=== PATIENT | male | born 1990 | race Caucasian/White ===

== ENCOUNTER 2022-11-30 14:09 | Emergency (ER) | payer OTHER ==
[~2022-11-30 14:09] MED LIST: Iopamidol 370 76% 100 ML VIAL ONE
[2022-11-30 14:54] LABS: ALT (SGPT) 24 U/L (8-55); AST (SGOT) 23 U/L (5-34); Alcohol Less than 10 mg/dL (Less than 10); Alkaline Phosphatase 107 U/L (40-110); Anion Gap 15 mmol/L (10-20); BUN (Urea Nitrogen) 12 mg/dL (8.9-20.6); Bilirubin, Total 0.9 mg/dL (0.2-1.2); Calc. Creatinine Clearance 0 mL/min (70-130); Calcium 9.7 mg/dL (7.8-10.44); Carbon Dioxide 26 mmol/L (22-29); Chloride 102 mmol/L (98-107); Estimated GFR 119; Globulin 3.3 g/dL (2.4-3.5); Glucose 109 mg/dL (70-105); Lipase 22 U/L (8-78); Potassium 3.5 mmol/L (3.5-5.1); Protein, Total 8.3 g/dL (6.0-8.3); Sodium 139 mmol/L (136-145)
[2022-11-30 14:58] LABS: #Basophils 0.1 thou/uL (0.0-0.2); #Lymphocytes 4.2 thou/uL (1.20-3.40); #Monocytes 0.8 thou/uL (0.11-0.59); #Neutrophils 6.5 thou/uL (1.40-6.50); %Basophils 0.9 % (0.0-1.0); %Eosinophils 0.2 % (0.0-10.0); %Lymphocytes 35.8 % (21.0-51.0); %Neutrophils 56.1 % (42.0-75.0); Hemoglobin 16.9 g/dL (14.0-18.0); Mean Corpuscular HGB CONC 36.7 g/dL (32.0-36.0); Mean Corpuscular Hemoglobin 32.1 pg (27.0-31.0); Mean Corpuscular Volume 87.6 fl (78.0-98.0); Mean Platelet Volume 9.6 fL (7.4-10.4); Platelet Count 307 10x3/uL (130-400); RBC Distribution Width 10.9 % (11.5-14.5); Red Blood Cell (RBC) Count 5.26 mill/uL (4.70-6.10); White Blood Cell (WBC) Count 11.6 10x3/uL (4.8-10.8)
[2022-11-30 15:21] LABS: MDiff Complete? YES
[2022-11-30 15:47] LABS: Clarity Clear (Clear); Glucose, Urine (Dipstick) Negative (Negative); Ketone, Urine Negative (Negative); Leukocyte Trace (Negative); Nitrite Negative (Negative); Protein, Urine (Dipstick) Negative (Neg-Trace); Specific Gravity, Urine 1.015 (1.005-1.030); pH, Urine 7.5 (5.0-9.0)
[2022-11-30 15:48] LABS: Bilirubin Negative (Negative); Blood, Urine Trace (Negative); Urobilinogen 0.2 mg/dL (Less than 2)
[2022-11-30 15:50] LABS: Bacteria/HPF 1+ HPF (None Seen); RBC/HPF 0-3 HPF (0-3); Squamous Epithelial None Seen HPF (0-3); WBC/HPF 0-3 HPF (0-3)
== END 2022-11-30 16:20 | disposition home or self-care (01) ==
LOC: BURERS 14:09
DX: S39.012A Strain of muscle, fascia and tendon of lower back, initial encounter (principal); D72.829 Elevated white blood cell count, unspecified; F17.290 Nicotine dependence, other tobacco product, uncomplicated; V29.99XA Rider (driver) (passenger) of other motorcycle injured in unspecified traffic accident, initial encounter
CPT/HCPCS: 70450; 71260; 72125; 74177; 80053; 80307; 81003; 81015; 83605; 83690; 85025; 93005; Q9967